=== PATIENT | female | born 1995 | race Hispanic/Latino ===

== ENCOUNTER 2018-07-30 21:53 | Emergency (ER) | payer MEDICAID, OTHER | END 2018-07-30 23:06 | disposition home or self-care (01) | LOC: M ED 21:53 | DX: L42 Pityriasis rosea (principal) | CPT/HCPCS: 99282 ==

== ENCOUNTER → 2018-11-02 | Outpatient (CLI) | payer OTHER ==
[~2018-11-02] MED LIST: CLAR1TAB2 PO
--- NOTE | 2018-11-03 02:32 | REP ---
Clinical: Shortness of breath . Comparison: None . Technique: PA and lateral. Findings: The mediastinum and cardiac silhouette are normal. The lung rocha are clear and without acute consolidation, effusion, or pneumothorax. The skeletal structures are intact and normal. Impression: 1. No focal consolidation. Electronically Signed by Thee Yarbrough MD 11/03/2018 02:24 A
== END ==
LOC: M WUC 14:13
PROVIDERS: ATTEND Physician Assistant
DX: R06.02 Shortness of breath (principal)

== ENCOUNTER 2019-07-31 18:17 | Emergency (ER) | payer OTHER ==
[~2019-07-31] VITALS: Ht 157.5 cm; Wt 50.7 kg
[2019-07-31] MEDS ORDERED: ALBU8.5H (18:24)
[2019-07-31] MEDS ORDERED: hydrOXYzine 25 MG TAB PO STA (18:40)
[2019-07-31] MEDS ORDERED: HYDR-3363 PO (19:47)
[2019-07-31 19:54] VITALS: BP 130/88
--- NOTE | 2019-08-01 07:27 | ECGEPIP ---
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
== END 2019-07-31 19:57 | disposition home or self-care (01) ==
LOC: M ED 18:17
DX: F41.9 Anxiety disorder, unspecified (principal); F32.9 Major depressive disorder, single episode, unspecified; J45.909 Unspecified asthma, uncomplicated; Z79.899 Other long term (current) drug therapy

== ENCOUNTER 2019-08-09 18:02 | Emergency (ER) | payer OTHER ==
[~2019-08-09] VITALS: Ht 157.5 cm; Wt 49.4 kg
[~2019-08-09 18:02] MED LIST changes: +ALBU8.5H; +HYDR-3363 PO
[2019-08-09 18:03] VITALS: BP 105/78
[2019-08-09] MEDS ORDERED: ALPR0.25 (18:10)
== END 2019-08-09 21:17 | disposition left against medical advice (07) ==
LOC: M ED 18:02
DX: Z53.21 Procedure and treatment not carried out due to patient leaving prior to being seen by health care provider (principal)